=== PATIENT | female | born 1980 | race Caucasian/White ===

== ENCOUNTER 2020-06-15 12:11 | Inpatient (IN) | payer BC ==
[2020-06-15 13:44] VITALS: BMI 31.6
[2020-06-15] MEDS ORDERED: KETAMINE HCL 500 MG/10 ML VIAL ONE (15:12)
[2020-06-15] MEDS ORDERED: PHENYLEPHRINE HCL 10 MG/1 ML SINGLE DOSE VIAL ONE (15:12)
[2020-06-15] MEDS ORDERED: OXYTOCIN 10 UNITS/ML VIAL ONE (15:12)
[2020-06-15] MEDS ORDERED: ONDANSETRON 4 MG/2 ML VIAL ONE (15:12)
[2020-06-15] MEDS ORDERED: morphine SULFATE/PF 0.5 MG/ML (2cc Syringe - QUVA) ONE (15:12)
[2020-06-15] MEDS ORDERED: GLYCOPYRROLATE 0.2 MG/1 ML VIAL ONE (15:12)
[2020-06-15] MEDS ORDERED: ELECTROLYTE-148 SOLN 500 ML IV ONE (15:31)
[2020-06-15] MEDS ORDERED: CITRIC ACID/SODIUM CITRATE 30 ML UNIT-DOSE CUP PO ONE (15:31)
[2020-06-15] MEDS ORDERED: ELECTROLYTE-148 SOLN 1,000 ML IV SCH (16:00)
[2020-06-15] MEDS ORDERED: MIDAZOLAM HCL 2 MG/2 ML SINGLE DOSE VIAL ONE (16:22)
[2020-06-15] MEDS: OXYTOCIN 20 UNITS in 0.9% NS 20 UNIT/1,000 ML INFUS.BAG IV SCH ×2 (17:20→22:32)
[2020-06-15] MEDS ORDERED: ONDANSETRON 4 MG/2 ML VIAL IVPUSH PRN (17:34)
[2020-06-15] MEDS ORDERED: METHYLERGONOVINE MALEATE 0.2 MG/1 ML AMP IM PRN (17:49)
[2020-06-15] MEDS ORDERED: oxyCODONE HCL 5 MG TABLET PO PRN ×2 (17:49)
[2020-06-15] MEDS ORDERED: SENNOSIDES/DOCUSATE COMBO (SENNA PLUS) TABLET (UD) PO PRN (17:49)
[2020-06-15] MEDS: IBUPROFEN 800 MG/8 ML IJ IVPB PRN (22:17)
[2020-06-15] MEDS ORDERED: ZOLPIDEM TARTRATE 5 MG TABLET PO PRN (22:45)
[2020-06-16] MEDS: IBUPROFEN 800 MG/8 ML IJ IVPB PRN (08:19)
[2020-06-16] MEDS: OXYTOCIN 20 UNITS in 0.9% NS 20 UNIT/1,000 ML INFUS.BAG IV SCH (09:00)
[2020-06-16] MEDS: PRENATAL VITAMINS W/ FOLIC ACID TABLET (FP) PO SCH (09:33)
[2020-06-16 10:49] LABS: BASO % 0.9 % (0-2.0); EOS % 0.3 % (0-4.5); HEMATOCRIT 36.1 % (32.4-45.2); HEMOGLOBIN 12.1 GM/dL (10.7-15.3); LYMPH % 19.3 % (8-40); MCH 32.8 pg (25.7-33.7); MCHC 33.4 g/dl (32.0-36.0); MEAN CELL VOLUME 98.2 fl (80-96); MEAN PLT VOLUME 9.6 fl (7.5-11.1); MONO % 5.8 % (3.8-10.2); NEUT % 73.7 % (42.8-82.8); PLATELET COUNT 245 K/MM3 (134-434); RBC 3.68 M/mm3 (3.60-5.2); RDW 13.7 % (11.6-15.6); WHITE BLOOD COUNT 16.3 K/mm3 (4.0-10.0)
[2020-06-16 11:33] LABS: ANISOCYTOSIS 0; HELMET CELLS 0; HOWELL-JOLLY BODIES 0; MACROCYTOSIS 0; OVALOCYTE 0; PLATELET ESTIMATE NORMAL; ROULEAU 0; SICKELED CELLS 0; TARGET CELLS 0; TEAR DROP CELLS 0; TOXIC GRANULATION 0
[2020-06-16] MEDS: SIMETHICONE 80 MG TAB.CHEW (FP) PO PRN ×2 (14:35→22:00)
[2020-06-16] MEDS: IBUPROFEN 600 MG TABLET (FP) PO PRN ×2 (15:50→22:00)
[2020-06-16] MEDS ORDERED: LORazepam 0.5 MG TABLET PO PRN (16:39)
[2020-06-16] MEDS ORDERED: BISACODYL 10 MG SUPP.RECT RC PRN (17:50)
[2020-06-16] MEDS: ACETAMINOPHEN 325 MG TABLET (FP) PO PRN (22:00)
[2020-06-17] MEDS: ACETAMINOPHEN 325 MG TABLET (FP) PO PRN ×2 (06:18→10:04)
[2020-06-17] MEDS: IBUPROFEN 600 MG TABLET (FP) PO PRN ×2 (06:18→10:04)
[2020-06-17] MEDS: SIMETHICONE 80 MG TAB.CHEW (FP) PO PRN ×2 (06:19→10:04)
[2020-06-17 09:34] VITALS: BP 136/83; PULSE 83; TEMP 97.7
[2020-06-17] MEDS: PRENATAL VITAMINS W/ FOLIC ACID TABLET (FP) PO SCH (10:04)
== END 2020-06-17 10:15 | disposition home or self-care (01) | DRG 788 ==
LOC: JLDR 12:11 → J3W 18:30
PROVIDERS: ADMIT Obstetrics & Gynecology; ATTEND Obstetrics & Gynecology
PROC: 10D00Z1 Extraction of Products of Conception, Low, Open Approach (ICD-10-PCS; principal; 2020-06-15)
DX: O34.211 Maternal care for low transverse scar from previous cesarean delivery (principal); N85.8 Other specified noninflammatory disorders of uterus; O99.62 Diseases of the digestive system complicating childbirth; K81.9 Cholecystitis, unspecified; Z3A.38 38 weeks gestation of pregnancy; Z37.0 Single live birth
CPT/HCPCS: 36415; 85025; 88307-TC; C9803; U0003